=== PATIENT | male | born 1985 | race Caucasian/White ===

== ENCOUNTER 2016-05-08 17:32 | Emergency (ER) | payer OTHER ==
[~2016-05-08] VITALS: Ht 203.2 cm; Wt 138.3 kg
[2016-05-08] MEDS ORDERED: IV NORMAL SALINE 1000ML BAG 1,000 ML IV SCH (17:50)
[2016-05-08] MEDS ORDERED: ONDANSETRON PF 4 MG/2 ML VIAL. IV ONE (18:00)
[2016-05-08 18:22] LABS: BASO % 1 % (0-3); EOS % 4 % (0-3); HEMATOCRIT 43.1 % (39.0-53.0); HEMOGLOBIN 14.5 g/dL (13.0-17.5); LYMPH # 1.2 x10^3/uL (1.0-4.8); LYMPH % 16 % (24-48); MEAN CORPUSCULAR HEMOGLOBIN 33 pg (25-35); MEAN CORPUSCULAR HGB CONC 34 g/dL (31-37); MEAN CORPUSCULAR VOLUME 99 fL (79-100); MONO % 13 % (0-9); NEUT % 67 % (31-73); PLATELET COUNT 194 x10^3/uL (140-400); RED BLOOD COUNT 4.34 x10^6/uL (4.30-5.70); RED CELL DISTRIBUTION WIDTH 12.5 % (11.5-14.5); WHITE BLOOD COUNT 7.4 x10^3/uL (4.0-11.0)
[2016-05-08 18:24] LABS: BILIRUBIN,URINE NEGATIVE (NEG); GLUCOSE,URINE NEGATIVE (NEG); NITRITE,URINE NEGATIVE (NEG); PH,URINE 5.5; PROTEIN,URINE NEGATIVE (NEG-TRACE); UROBILINOGEN,URINE 0.2 mg/dL (0.2 mg/dL)
[2016-05-08 18:33] LABS: BACTERIA,URINE 0 /HPF (0-FEW); RBC,URINE OCC /HPF (0-2); SQUAMOUS EPITHELIAL CELL,UR OCC /LPF; WBC,URINE 0 /HPF (0-4)
[2016-05-08 18:35] LABS: CALCIUM 8.9 mg/dL (8.5-10.1); POTASSIUM 3.6 mmol/L (3.5-5.1)
[2016-05-08 18:39] LABS: ALBUMIN 3.9 g/dL (3.4-5.0); TOTAL BILIRUBIN 0.3 mg/dL (0.2-1.0); TOTAL PROTEIN 7.7 g/dL (6.4-8.2)
[2016-05-08 18:40] LABS: OBC FLU VALID
[2016-05-08 19:27] VITALS: BP 140/100
--- NOTE | 2016-05-08 19:43 | PHYS DOC ---
Past Medical History Past Medical History: Depression, Hypertension Past Surgical History: Lumbar Laminectomy, Other Additional Past Surgical Histo: testicle sx, compartement syndrome l hand Alcohol Use: None Drug Use: None Social History Narrative: in recovery, former meth and marijuana use Adult General Chief Complaint Chief Complaint: NAUSEA/VOMITING/DIARRHA HPI HPI Patient is a 30 year old male who presents with fever, cough, body aches, vomiting that started yesterday. Reports he lives in a care facility and someone recently had the flu. Took Tylenol prior to arrival Review of Systems Review of Systems Constitutional: Fever 2 days Eyes: Denies change in visual acuity, redness, or eye pain HENT: Denies nasal congestion or sore throat Respiratory: Denies shortness of breath. Cough Cardiovascular: No additional information not addressed in HPI [] GI: nausea and vomiting. : Denies dysuria or hematuria Musculoskeletal: Denies back pain or joint pain Integument: Denies rash or skin lesions Neurologic: Denies headache, focal weakness or sensory changes Endocrine: Denies polyuria or polydipsia [] Current Medications Current Medications Current Medications Medications (Trade) Dose Ordered Sig/Pedro Start Time Stop Time Status Last Admin Dose Admin Ibuprofen (Motrin) 600 mg 1X ONCE 05/08/16 19:45 05/08/16 19:46 DC 05/08/16 19:45 600 MG Ondansetron HCl (Zofran) 4 mg 1X ONCE 05/08/16 18:00 05/08/16 18:01 DC 05/08/16 18:25 4 MG Sodium Chloride (Iv Sodium Chloride 0.9% 1000ml Bag) 1,000 ml @ 1,000 mls/hr Q1H 05/08/16 17:50 05/08/16 18:49 DC 05/08/16 18:26 1,000 MLS/HR Allergies Allergies Allergies Coded Allergies Type Severity Reaction Last Updated Verified haloperidol Allergy Intermediate 05/08/16 Yes Physical Exam Physical Exam Constitutional: Well developed, well nourished, no acute distress, non-toxic appearance. HENT: Normocephalic, atraumatic, bilateral external ears normal, no oral exudates, nose normal. oropharynx moist Eyes: PERRLA, EOMI, conjunctiva normal, no discharge. Neck: Normal range of motion, no tenderness, supple, no stridor. Cardiovascular:Heart rate regular rhythm, no murmur Lungs & Thorax: Bilateral breath sounds clear to auscultation Abdomen: Bowel sounds normal, soft, no masses, no pulsatile masses. Generalized tenderness, no rebound or gaurding Skin: Warm, dry, no erythema, no rash. Back: No tenderness, no CVA tenderness. Extremities: No tenderness, no cyanosis, no clubbing, ROM intact, no edema. Neurologic: Alert and oriented X 3, normal motor function, normal sensory function, no focal deficits noted. Psychologic: Affect normal, judgement normal, mood normal. Current Patient Data Vital Signs Vital Signs Date Time Temp Pulse Resp B/P Pulse Ox O2 Delivery O2 Flow Rate FiO2 05/08/16 19:27 98 18 140/100 93 Room Air 05/08/16 17:35 99.7 99.7 Lab Values Laboratory Tests Test 05/08/16 17:45 05/08/16 18:00 Influenza Type A Antigen Negative (NEGATIVE) Influenza Type B Antigen Negative (NEGATIVE) White Blood Count 7.4x10^3/uL (4.0-11.0) Red Blood Count 4.34x10^6/uL (4.30-5.70) Hemoglobin 14.5g/dL (13.0-17.5) Hematocrit 43.1% (39.0-53.0) Mean Corpuscular Volume 99fL (79-100) Mean Corpuscular Hemoglobin 33pg (25-35) Mean Corpuscular Hemoglobin Concent 34g/dL (31-37) Red Cell Distribution Width 12.5% (11.5-14.5) Platelet Count 194x10^3/uL (140-400) Neutrophils (%) (Auto) 67% (31-73) Lymphocytes (%) (Auto) 16% (24-48) L Monocytes (%) (Auto) 13% (0-9) H Eosinophils (%) (Auto) 4% (0-3) H Basophils (%) (Auto) 1% (0-3) Neutrophils # (Auto) 4.9x10^3uL (1.8-7.7) Lymphocytes # (Auto) 1.2x10^3/uL (1.0-4.8) Monocytes # (Auto) 1.0x10^3/uL (0.0-1.1) Eosinophils # (Auto) 0.3x10^3/uL (0.0-0.7) Basophils # (Auto) 0.0x10^3/uL (0.0-0.2) Urine Collection Type Unknown Urine Color Yellow Urine Clarity Clear Urine pH 5.5 Urine Specific [place] 1.015 Urine Protein Negativemg/dL (NEG-TRACE) Urine Glucose (UA) Negativemg/dL (NEG) Urine Ketones (Stick) Negativemg/dL (NEG) Urine Blood Small (NEG) Urine Nitrite Negative (NEG) Urine Bilirubin Negative (NEG) Urine Urobilinogen Dipstick 0.2mg/dL (0.2 mg/dL) Urine Leukocyte Esterase Negative (NEG) Urine RBC Occ/HPF (0-2) Urine WBC 0/HPF (0-4) Urine Squamous Epithelial Cells Occ/LPF Urine Bacteria 0/HPF (0-FEW) Urine Mucus Slight/LPF Sodium Level 143mmol/L (136-145) Potassium Level 3.6mmol/L (3.5-5.1) Chloride Level 104mmol/L (98-107) Carbon Dioxide Level 30mmol/L (21-32) Anion Gap 9 (6-14) Blood Urea Nitrogen 10mg/dL (8-26) Creatinine 1.0mg/dL (0.7-1.3) Estimated GFR (Cockcroft-Gault) 89.0 BUN/Creatinine Ratio 10 (6-20) Glucose Level 100mg/dL (70-99) H Calcium Level 8.9mg/dL (8.5-10.1) Total Bilirubin 0.3mg/dL (0.2-1.0) Aspartate Amino Transferase (AST) 29U/L (15-37) Alanine Aminotransferase (ALT) 67U/L (16-63) H Alkaline Phosphatase 56U/L (46-116) Total Protein 7.7g/dL (6.4-8.2) Albumin 3.9g/dL (3.4-5.0) Albumin/Globulin Ratio 1.0 (1.0-1.7) Laboratory Tests 05/08/16 18:00 Laboratory Tests 05/08/16 18:00 EKG EKG [] Radiology/Procedures Radiology/Procedures [] Impressions: Viral illness Course & Med Decision Making Course & Med Decision Making Pertinent Labs and Imaging studies reviewed. (See chart for details) [] Dragon Disclaimer Dragon Disclaimer This electronic medical record was generated, in whole or in part, using a voice recognition dictation system. Departure Departure Impression: Primary Impression: Viral illness Additional Impression: Vomiting Disposition: HOME, SELF-CARE Condition: STABLE Referrals: NON,STAFF (PCP) Patient Instructions: Nausea and Vomiting, [id number], Viral Infections, Easy -To-Read Additional Instructions: It is important to take Ibuprofen and/or Tylenol as directed for fever reduction and stay plenty hydrated. Follow up with your doctor in 1-2 days. Return if any problems or concerns, inability to tolerate fluids, or increased pain. Problem Qualifiers NIYAH ETIENNE APRN May 08, 2016 19:43
[2016-05-08] MEDS ORDERED: IBUPROFEN 600 MG TABLET. PO ONE (19:45)
[2016-05-09 07:28] LABS: NEGATIVE OBC STREP NEG; POSITIVE OBC STREP POS
--- NOTE | 2016-05-09 07:54 | RAD ---
Exam performed: 2 views of the chest. Indication: fever, cough Date of Service:05/08/2016 7:50 PM . Comparison : None available Findings: PA and lateral radiographs of the chest reveal a normal cardiomediastinal contour. The lungs are clear. No pleural fluid is seen. The visualized osseous structures are unremarkable. Impression: Radiographically normal chest.
== END 2016-05-08 19:55 | disposition home or self-care (01) ==
LOC: ER 17:32
DX: B34.9 Viral infection, unspecified (principal); R11.2 Nausea with vomiting, unspecified; I10 Essential (primary) hypertension; F32.9 Major depressive disorder, single episode, unspecified; F12.10 Cannabis abuse, uncomplicated; F15.10 Other stimulant abuse, uncomplicated; Z88.8 Allergy status to other drugs, medicaments and biological substances
CPT/HCPCS: 36415; 71020; 80053; 81001; 85027; 87070; 87804; 87880; 96361; 96374; 99285; J2405; J7030

== ENCOUNTER 2016-06-02 07:51 | Emergency (ER) | payer OTHER ==
[~2016-06-02] VITALS: Ht 203.2 cm; Wt 140.6 kg
[2016-06-02] MEDS ORDERED: IV NORMAL SALINE 1000ML BAG 1,000 ML IV SCH (08:14)
[2016-06-02] MEDS ORDERED: METOCLOPRAMIDE HCL 10 MG/2 ML VIAL. IV ONE (08:15)
[2016-06-02] MEDS ORDERED: DIPHENHYDRAMINE 50 MG/ML VIAL IVP ONE (08:15)
--- NOTE | 2016-06-02 08:24 | PHYS DOC ---
Past Medical History Past Medical History: Depression, Hypertension, Schizophrenia Past Surgical History: Lumbar Laminectomy, Other Additional Past Surgical Histo: testicle sx, compartement syndrome l hand Alcohol Use: Sober Additional Information: Pt states he has not drank for 6 months. Drug Use: Other Social History Narrative: Pt states he is in recovery, has not used drugs in 3 months. Adult General Chief Complaint Chief Complaint: ABDOMINAL PAIN HPI HPI Patient is a 30 year old male presents emergency Department today with a complaint of diffuse abdominal pain and vomiting that began at approximately 2 AM this morning. Patient reports a history of acid reflux. He denies history of previous gastrointestinal surgeries. He denies any history of bowel obstructions. Patient reports last by mouth intake at 4:30 PM yesterday. He reports his last bowel movement was diarrhea at 2 AM. He denies black or bloody emesis. He denies black or bloody bowel movements. Patient denies any preceding illnesses. He denies any known exposures to anyone with a complaint of vomiting or diarrhea. Patient is currently residing at [facility]. He has spent some time at [facility] recently due to "psychiatric issues." Patient currently denies suicidal or homicidal ideation. He states that his overall psychiatric health is improving. He denies antibiotic use or foreign travel within the past 90 days. Review of Systems Review of Systems Constitutional: Denies fever or chills [] Eyes: Denies change in visual acuity, redness, or eye pain [] HENT: Denies nasal congestion or sore throat [] Respiratory: Denies cough or shortness of breath [] Cardiovascular: No additional information not addressed in HPI [] GI: Denies abdominal pain, nausea, vomiting, bloody stools or diarrhea [] : Denies dysuria or hematuria [] Musculoskeletal: Denies back pain or joint pain [] Integument: Denies rash or skin lesions [] Neurologic: Denies headache, focal weakness or sensory changes [] Endocrine: Denies polyuria or polydipsia [] Current Medications Current Medications Current Medications Medications (Trade) Dose Ordered Sig/Pedro Start Time Stop Time Status Last Admin Dose Admin Diphenhydramine HCl (Benadryl) 50 mg 1X ONCE 06/02/16 08:15 06/02/16 08:30 DC 06/02/16 08:39 50 MG Metoclopramide HCl (Reglan) 10 mg 1X ONCE 06/02/16 08:15 06/02/16 08:30 DC 06/02/16 08:39 10 MG Sodium Chloride (Iv Sodium Chloride 0.9% 1000ml Bag) 1,000 ml @ 1,000 mls/hr Q1H 06/02/16 08:14 06/02/16 09:13 DC 06/02/16 08:38 1,000 MLS/HR Allergies Allergies Allergies Coded Allergies Type Severity Reaction Last Updated Verified haloperidol Allergy Intermediate 05/08/16 Yes Physical Exam Physical Exam Constitutional: Well developed, well nourished, no acute distress, non-toxic appearance. Patient is much more focused on the television that interacting with the examiner. HENT: Normocephalic, atraumatic, bilateral external ears normal, oropharynx moist, no oral exudates, nose normal. [] Eyes: PERRLA, EOMI, conjunctiva normal, no discharge. [] Neck: Normal range of motion, no tenderness, supple, no stridor. [] Cardiovascular:Heart rate regular rhythm, no murmur [] Lungs & Thorax: Bilateral breath sounds clear to auscultation [] Abdomen: Abdomen is soft and nondistended. There are hyperactive bowel sounds in all 4 quadrants. There is no palpable defect to the abdominal wall or pulsatile mass. Patient complains of diffuse tenderness in the stethoscope touches his abdomen. Skin: Warm, dry, no erythema, no rash. [] Back: Patient's back is normal in appearance. There is no CVA tenderness. Patient does complain of lower back pain at the level of L3-L5 in the bilateral paraspinous soft tissues. There is no palpable defect, deformity or spasm. Extremities: No tenderness, no cyanosis, no clubbing, ROM intact, no edema. [] Neurologic: Alert and oriented X 3, normal motor function, normal sensory function, no focal deficits noted. [] Psychologic: Affect normal, dysphoric mood with flat affect. Current Patient Data Vital Signs Vital Signs Date Time Temp Pulse Resp B/P Pulse Ox O2 Delivery O2 Flow Rate FiO2 06/02/16 08:00 98.0 99 20 130/79 96 Room Air 98.0 Lab Values Laboratory Tests Test 06/02/16 08:00 White Blood Count 10.9x10^3/uL (4.0-11.0) Red Blood Count 4.93x10^6/uL (4.30-5.70) Hemoglobin 16.5g/dL (13.0-17.5) Hematocrit 48.7% (39.0-53.0) Mean Corpuscular Volume 99fL (79-100) Mean Corpuscular Hemoglobin 33pg (25-35) Mean Corpuscular Hemoglobin Concent 34g/dL (31-37) Red Cell Distribution Width 12.6% (11.5-14.5) Platelet Count 238x10^3/uL (140-400) Neutrophils (%) (Auto) 85% (31-73) H Lymphocytes (%) (Auto) 6% (24-48) L Monocytes (%) (Auto) 7% (0-9) Eosinophils (%) (Auto) 2% (0-3) Basophils (%) (Auto) 0% (0-3) Neutrophils # (Auto) 9.2x10^3uL (1.8-7.7) H Lymphocytes # (Auto) 0.7x10^3/uL (1.0-4.8) L Monocytes # (Auto) 0.7x10^3/uL (0.0-1.1) Eosinophils # (Auto) 0.2x10^3/uL (0.0-0.7) Basophils # (Auto) 0.0x10^3/uL (0.0-0.2) Urine Collection Type Unknown Urine Color Yellow Urine Clarity Clear Urine pH 7.5 Urine Specific [place] 1.025 Urine Protein Negativemg/dL (NEG-TRACE) Urine Glucose (UA) Negativemg/dL (NEG) Urine Ketones (Stick) Negativemg/dL (NEG) Urine Blood Negative (NEG) Urine Nitrite Negative (NEG) Urine Bilirubin Negative (NEG) Urine Urobilinogen Dipstick 0.2mg/dL (0.2 mg/dL) Urine Leukocyte Esterase Negative (NEG) Urine RBC 3-5/HPF (0-2) Urine WBC 0/HPF (0-4) Urine Squamous Epithelial Cells None/LPF Urine Bacteria 0/HPF (0-FEW) Sodium Level 140mmol/L (136-145) Potassium Level 4.0mmol/L (3.5-5.1) Chloride Level 101mmol/L (98-107) Carbon Dioxide Level 27mmol/L (21-32) Anion Gap 12 (6-14) Blood Urea Nitrogen 16mg/dL (8-26) Creatinine 1.0mg/dL (0.7-1.3) Estimated GFR (Cockcroft-Gault) 89.0 BUN/Creatinine Ratio 16 (6-20) Glucose Level 120mg/dL (70-99) H Calcium Level 9.6mg/dL (8.5-10.1) Total Bilirubin 0.6mg/dL (0.2-1.0) Aspartate Amino Transferase (AST) 45U/L (15-37) H Alanine Aminotransferase (ALT) 77U/L (16-63) H Alkaline Phosphatase 62U/L (46-116) Total Protein 9.0g/dL (6.4-8.2) H Albumin 4.3g/dL (3.4-5.0) Albumin/Globulin Ratio 0.9 (1.0-1.7) L Lipase 98U/L (73-393) Laboratory Tests 06/02/16 08:00 Laboratory Tests 06/02/16 08:00 EKG EKG [] Radiology/Procedures Radiology/Procedures [facility] [address] [place], [place] [id number] IMAGING REPORT Signed PATIENT: MARTINA PONEC ACCOUNT: [id number] : 1985 LOCATION: ER AGE: 30 SEX: M EXAM STATUS: PRE ER ORD. PHYSICIAN: CARY DOE REASON: diffuse abdominal pain, vomiting PROCEDURE: ACUTE ABDOMEN SERIES Indication abdominal pain. Left upper quadrant. Nausea and vomiting with diarrhea. A single view of the chest was obtained as well as flat and upright films of the abdomen. The chest is compared to an exam one month earlier. The heart and pulmonary vessels appear normal. The lungs are clear. There is no pleural fluid or pneumothorax. The appearance of the chest is not changed substantially relative to the previous exam. There is no free air. The abdominal gas pattern is normal. No organomegaly or abnormal calculi are seen. Scoliosis and postoperative changes in the lumbar spine are noted. IMPRESSION: No acute finding seen in the chest or abdomen on plain films DICTATED and SIGNED BY: DWAIN KELLY MD DATE: 06/02/16 0842 CC: CARY DOE; NON,STAFF ~ Course & Med Decision Making Course & Med Decision Making Pertinent Labs and Imaging studies reviewed. (See chart for details) [] Dragon Disclaimer Dragon Disclaimer This electronic medical record was generated, in whole or in part, using a voice recognition dictation system. Departure Departure Impression: Primary Impression: Gastroenteritis Disposition: HOME, SELF-CARE Condition: GOOD Referrals: NON,STAFF (PCP) Patient Instructions: Viral Gastroenteritis, [id number] Additional Instructions: 1. Your laboratory test and x-rays here today are normal. 2. You have a viral illnesses causing her nausea, vomiting and diarrhea. 3. Review the discharge instructions provided for self-care and reasons to return to the emergency department. 4. You should follow up with primary care doctor within the next 5-7 days. If you do not have one, then please use the pamphlet provided for assistance in finding one. Scripts Dicyclomine Hcl (Bentyl)10 Mg Capsule1 Cap PO TID abdominalcramping #21 CAP Ref 1 Prov:CARY DOE 06/02/16 Promethazine Hcl 25 Mg Tablet1 Tab PO PRN Q6HRS #10 TAB Prov:CARY DOE 06/02/16 CARY DOE Jun 02, 2016 08:24
[2016-06-02 08:30] LABS: BASO % 0 % (0-3); EOS % 2 % (0-3); HEMATOCRIT 48.7 % (39.0-53.0); HEMOGLOBIN 16.5 g/dL (13.0-17.5); LYMPH # 0.7 x10^3/uL (1.0-4.8); LYMPH % 6 % (24-48); MEAN CORPUSCULAR HEMOGLOBIN 33 pg (25-35); MEAN CORPUSCULAR HGB CONC 34 g/dL (31-37); MEAN CORPUSCULAR VOLUME 99 fL (79-100); MONO % 7 % (0-9); NEUT % 85 % (31-73); PLATELET COUNT 238 x10^3/uL (140-400); RED BLOOD COUNT 4.93 x10^6/uL (4.30-5.70); RED CELL DISTRIBUTION WIDTH 12.6 % (11.5-14.5); WHITE BLOOD COUNT 10.9 x10^3/uL (4.0-11.0)
[2016-06-02 08:34] LABS: BILIRUBIN,URINE NEGATIVE (NEG); GLUCOSE,URINE NEGATIVE (NEG); NITRITE,URINE NEGATIVE (NEG); PH,URINE 7.5; PROTEIN,URINE NEGATIVE (NEG-TRACE); UROBILINOGEN,URINE 0.2 mg/dL (0.2 mg/dL)
[2016-06-02 08:43] LABS: CALCIUM 9.6 mg/dL (8.5-10.1)
[2016-06-02 08:47] LABS: BACTERIA,URINE 0 /HPF (0-FEW); WBC,URINE 0 /HPF (0-4)
--- NOTE | 2016-06-02 08:48 | RAD ---
Indication abdominal pain. Left upper quadrant. Nausea and vomiting with diarrhea. A single view of the chest was obtained as well as flat and upright films of the abdomen. The chest is compared to an exam one month earlier. The heart and pulmonary vessels appear normal. The lungs are clear. There is no pleural fluid or pneumothorax. The appearance of the chest is not changed substantially relative to the previous exam. There is no free air. The abdominal gas pattern is normal. No organomegaly or abnormal calculi are seen. Scoliosis and postoperative changes in the lumbar spine are noted. IMPRESSION: No acute finding seen in the chest or abdomen on plain films
[2016-06-02 08:49] LABS: ALBUMIN 4.3 g/dL (3.4-5.0); ALBUMIN/GLOBULIN RATIO 0.9 (1.0-1.7); TOTAL BILIRUBIN 0.6 mg/dL (0.2-1.0)
[2016-06-02] MEDS ORDERED: DICY10CA53 PO (09:24)
[2016-06-02] MEDS ORDERED: PROM25TA10 PO (09:24)
[2016-06-02 09:29] VITALS: BP 148/78
== END 2016-06-02 09:30 | disposition home or self-care (01) ==
LOC: ER 07:51
DX: K52.9 Noninfective gastroenteritis and colitis, unspecified (principal); F32.9 Major depressive disorder, single episode, unspecified; I10 Essential (primary) hypertension; F20.9 Schizophrenia, unspecified; K21.9 Gastro-esophageal reflux disease without esophagitis; Z88.8 Allergy status to other drugs, medicaments and biological substances
CPT/HCPCS: 36415; 74022; 80053; 81001; 83690; 85027; 96361; 96374; 96375; 99285; J1200; J2765; J7030